=== PATIENT | female | born 1990 | race Caucasian/White ===

== ENCOUNTER 2024-03-31 13:10 | Emergency (ER) | payer OTHER ==
[~2024-03-31] VITALS: Ht 170.2 cm; Wt 64.0 kg
[2024-03-31 13:30] VITALS: BP 123/66; TEMP 98.4; O2SAT 96
[2024-03-31] MEDS ORDERED: IBUP-1490 PO (13:49)
== END 2024-03-31 13:59 | disposition home or self-care (01) ==
LOC: ER 13:58
DX: B34.9 Viral infection, unspecified (principal); J06.9 Acute upper respiratory infection, unspecified; H92.09 Otalgia, unspecified ear; R50.9 Fever, unspecified; R51.9 Headache, unspecified